=== PATIENT | male | born 1985 | race Caucasian/White ===

== ENCOUNTER 2019-05-26 18:18 | Emergency (ER) | payer MEDICAID, OTHER ==
[~2019-05-26] VITALS: Ht 182.9 cm; Wt 74.8 kg
[2019-05-26 19:07] VITALS: BP 125/77
== END 2019-05-27 00:55 | disposition home or self-care (01) ==
LOC: ER 18:23
DX: S62.232A Other displaced fracture of base of first metacarpal bone, left hand, initial encounter for closed fracture (principal); S60.221A Contusion of right hand, initial encounter; F17.210 Nicotine dependence, cigarettes, uncomplicated; Y04.2XXA Assault by strike against or bumped into by another person, initial encounter; Y93.89 Activity, other specified; Y92.89 Other specified places as the place of occurrence of the external cause; Y99.8 Other external cause status
CPT/HCPCS: 29125; 73120; 73140